=== PATIENT | male | born 1990 | race Caucasian/White ===

== ENCOUNTER 2017-06-17 19:41 | Emergency (ER) | payer BC ==
--- NOTE | 2017-06-17 20:09 | ER Document Report ---
ED Medical Screen (RME) - General Chief Complaint: Visual problems Stated Complaint: BLURRED VISION Time Seen by Provider: 06/17/17 19:59 Notes: RME DISCLOSURE I have seen this patient as part of a Rapid Medical Evaluation and, if applicable, placed any initially appropriate orders. The patient will be seen and fully evaluated, including a full history and physical exam, by a provider ( in Main ED or Fast Track) when a room becomes available. 26-year-old male here with complaints of blurry vision that started earlier tonight. He states that he was sitting down and his vision suddenly became abnormal in the "I saw a rainbow in the left side of my vision". Upon further inquiry, I am able to understand that he has clear vision in the center of his visual corrales however it is blurry and all other parts of the visual field. He states that there was a brief moment in which he lost complete vision which he describes as "everything became a light blue color" however the vision then returned but still abnormal. He has no prior history of tunnel vision. There is no family history of tunnel vision retinal detachment scotomas. He endorses some minimal headache that started after the vision change however no other symptoms. TRAVEL OUTSIDE OF THE [place] IN LAST 30 DAYS: No - Related Data Allergies/Adverse Reactions: No Known Allergies Allergy (Unverified 07/18/15 02:52) Past Medical History - Social History Frequency of alcohol use: "Every few days" Drug Abuse: None Renal/ Medical History: Denies: Hx Peritoneal Dialysis Past Surgical History: Reports: Hx Appendectomy Physical Exam - Vital signs Vitals: Temp Pulse Resp BP Pulse Ox 98.8 F 116 H 16 148/99 H 99 06/17/17 19:53 06/17/17 19:53 06/17/17 19:53 06/17/17 19:53 06/17/17 19:53 Course - Vital Signs Vital signs: Temp Pulse Resp BP Pulse Ox 98.8 F 116 H 16 148/99 H 99 06/17/17 19:53 06/17/17 19:53 06/17/17 19:53 06/17/17 19:53 06/17/17 19:53
--- NOTE | 2017-06-17 21:02 | RADIOLOGY REPORT (SQ) ---
EXAM DESCRIPTION: CT HEAD WITHOUT COMPLETED DATE/TIME: 06/17/2017 8:52 pm REASON FOR STUDY: bilateral tunnel vision; eval mass bleed infarct COMPARISON: None. TECHNIQUE: Axial images acquired through the brain without intravenous contrast. Images reviewed wi th bone, brain and subdural windows. Images stored on PACS. All CT scanners at this facility use dose modulation, iterative reconstruction, and/or weight based d osing when appropriate to reduce radiation dose to as low as reasonably achievable (ALARA). [facility]: Dose Right [facility]: CareDose [facility]: Dose Right [facility]: Teradose 4D [facility]: [employer] RADIATION DOSE: CT Rad equipment meets quality standard of care and radiation dose reduction techniq ues were employed. CTDIvol: 64.6 mGy. DLP: 1034 mGy-cm. mGy. LIMITATIONS: None. FINDINGS: VENTRICLES: Normal size and contour. CEREBRUM: No masses. No hemorrhage. No midline shift. No evidence for acute infarction. Normal gra y/white matter differentiation. No areas of low density in the white matter. CEREBELLUM: No masses. No hemorrhage. No alteration of density. No evidence for acute infarction. EXTRAAXIAL SPACES: No fluid collections. No masses. ORBITS AND GLOBE: No intra- or extraconal masses. Normal contour of globe without masses. CALVARIUM: No fracture. PARANASAL SINUSES: No fluid or mucosal thickening. SOFT TISSUES: No mass or hematoma. OTHER: No other significant finding. IMPRESSION: NORMAL BRAIN CT WITHOUT CONTRAST. EVIDENCE OF ACUTE STROKE: NO. COMMENT: Quality ID # [id number]: Final reports with documentation of one or more dose reduction techniques (e.g., Automated exposure control, adjustment of the mA and/or kV according to patient size, use of iterative reconstruction technique) TECHNICAL DOCUMENTATION: JOB ID: [id number]- All Rights Reserved
[2017-06-17] MEDS ORDERED: DIPHENHYDRAMINE HCL 50 MG CAPSULE PO ONE (21:10)
[2017-06-17] MEDS ORDERED: PROCHLORPERAZINE MALEATE 10 MG TABLET PO ONE (21:10)
--- NOTE | 2017-06-17 21:15 | ER Document Report ---
ED General - General Chief Complaint: Visual problems Stated Complaint: BLURRED VISION Time Seen by Provider: 06/17/17 19:59 Mode of Arrival: Ambulatory Information source: Patient Notes: 26-year-old male history of migraine headaches resents with complaints of headache with sudden visual deficit. Patient notes that it was tunnel vision initially he started seeing colors and then the left side of his vision went black. Patient denies any nausea or vomiting notes he has never had an aura with his migraine headaches before. Patient notes upon his arrival here his aura has resolved as has his headache Patient denies any other neurological deficits TRAVEL OUTSIDE OF THE [place] IN LAST 30 DAYS: No - HPI Onset: Just prior to arrival Onset/Duration: Sudden Quality of pain: Achy Severity: Mild Pain Level: 1 Associated symptoms: Headache Exacerbated by: Denies Relieved by: Denies Similar symptoms previously: No Recently seen / treated by doctor: No - Related Data Allergies/Adverse Reactions: No Known Allergies Allergy (Verified 06/17/17 21:52) Past Medical History - Social History Smoking Status: Current Every Day Smoker Cigarette use (# per day): Yes Chew tobacco use (# tins/day): No Smoking Education Provided: No Frequency of alcohol use: "Every few days" Drug Abuse: None Family History: None Patient has suicidal ideation: No Patient has homicidal ideation: No Renal/ Medical History: Denies: Hx Peritoneal Dialysis Past Surgical History: Reports: Hx Appendectomy Review of Systems - Review of Systems Notes: REVIEW OF SYSTEMS: CONSTITUTIONAL : Denies fever, chills, or sweats. Denies recent illness. EENT: Admits to seeing colors than having visual deficits CARDIOVASCULAR: Denies chest pain. Denies palpitations or racing or irregular heart beat. Denies ankle edema. RESPIRATORY: Denies cough, cold, or chest congestion. Denies shortness of breath, difficulty breathing, or wheezing. GASTROINTESTINAL: Denies abdominal pain or distention. Denies nausea, vomiting , or diarrhea. Denies blood in vomitus, stools, or per rectum. Denies black, tarry stools. Denies constipation. GENITOURINARY: Denies difficulty urinating, painful urination, burning, frequency, blood in urine, or discharge. MUSCULOSKELETAL: Denies back or neck pain or stiffness. Denies joint pain or swelling. SKIN: Denies rash, lesions or sores. HEMATOLOGIC : Denies easy bruising or bleeding. LYMPHATIC: Denies swollen, enlarged glands. NEUROLOGICAL: Admits to headache PSYCHIATRIC: Denies anxiety or stress. Denies depression, suicidal ideation, or homicidal ideation. ALL OTHER SYSTEMS REVIEWED AND NEGATIVE. Dictation was performed using [employer] voice recognition software PHYSICAL EXAMINATION: GENERAL: Well-appearing, well-nourished and in no acute distress. HEAD: Atraumatic, normocephalic. EYES: Pupils equal round and reactive to light, extraocular movements intact, sclera anicteric, conjunctiva are normal. ENT: Nares patent, oropharynx clear without exudates. Moist mucous membranes. NECK: Normal range of motion, supple without lymphadenopathy LUNGS: Breath sounds clear to auscultation bilaterally and equal. No wheezes rales or rhonchi. HEART: Regular rate and rhythm without murmurs ABDOMEN: Soft, nontender, nondistended abdomen. No guarding, no rebound. No masses appreciated. Musculoskeletal: Normal range of motion, no pitting or edema. No cyanosis. NEUROLOGICAL: Cranial nerves grossly intact. Normal speech, normal gait. Normal sensory, motor exams PSYCH: Normal mood, normal affect. SKIN: Warm, Dry, normal turgor, no rashes or lesions noted. Physical Exam - Vital signs Vitals: Temp Pulse Resp BP Pulse Ox 98.8 F 116 H 16 148/99 H 99 06/17/17 19:53 06/17/17 19:53 06/17/17 19:53 06/17/17 19:53 06/17/17 19:53 Course - Re-evaluation Re-evalutation: 06/17/17 23:55 Upon arrival the patient symptoms have resolved, CT of the head was negative, visual acuity was 20/20, he has no symptoms at this time, patient was offered medication for headache and refuses, he refuses any further intervention including lumbar puncture, I spoke with the patient at length in regards to having a lumbar puncture performed. Pt was told the risks and benefits of the procedure in length. I do not believe the patient should leave without the LP being performed but the patient is alert oriented x4, understands the risks and benefits of staying and leaving including disability and . Pt understands that he can return at any time for further care and is more than welcome to do so. Given the symptoms and complaints resolution of symptoms I do believe this was a migraine headache with aura. Very strict return precautions have been provided to the patient he states he understands and will return if there is any other deficits or any other concerns After performing a Medical Screening Examination, I estimate there is LOW risk for ACUTE GLAUCOMA, TEMPORAL ARTERITIS, MENINGITIS, INCRANIAL HEMORRHAGE, or ISCHEMIC STROKE thus I consider the discharge disposition reasonable. I have reevaluated this patient multiple times and no significant life threatening changes are noted. The patient and I have discussed the diagnosis and risks, and we agree with discharging home with close follow-up with the understanding that symptoms and presentations can change. We also discussed returning to the Emergency Department immediately if new or worsening symptoms occur. We have discussed the symptoms which are most concerning (e.g., changing or worsening symptoms, new numbness or weakness, vomiting, fever) that necessitate immediate return. - Vital Signs Vital signs: Temp Pulse Resp BP Pulse Ox 98.7 F 116 H 18 121/89 H 99 06/17/17 22:27 06/17/17 19:53 06/17/17 22:01 06/17/17 22:02 06/17/17 22:02 - Diagnostic Test Radiology reviewed: Image reviewed, Reports reviewed - No acute abnormality Discharge - Discharge Clinical Impression: Migraine headache with aura Qualifiers: Status migrainosus presence: without status migrainosus Intractability: not intractable Qualified Code(s): G43.109 - Migraine with aura, not intractable, without status migrainosus Hypertension Qualifiers: Hypertension type: essential hypertension Qualified Code(s): I10 - Essential ( primary) hypertension Condition: Stable Disposition: HOME, SELF-CARE Instructions: Migraine Headache ([facility]) Referrals: KATELYNN SESAY MD [ACTIVE STAFF] - Follow up tomorrow
[2017-06-17 22:20] VITALS: BP 121/89
== END 2017-06-17 22:28 | disposition home or self-care (01) ==
LOC: ER 19:41
DX: G43.109 Migraine with aura, not intractable, without status migrainosus (principal); I10 Essential (primary) hypertension; F17.210 Nicotine dependence, cigarettes, uncomplicated
CPT/HCPCS: 70450; 99284